=== PATIENT | female | born 1970 | race Caucasian/White ===

== ENCOUNTER 2019-07-25 10:08 | Day surgery (SDC) | payer BC ==
[~2019-07-25 10:08] MED LIST: ACETAMINOPHEN 325 MG TABLET PO PRN; CEFAZOLIN SODIUM 2 GM in DEXTROSE 5%-WATER 100 ML IV PRN; OXYCODONE HCL SR 10 MG TABLET PO PRN
[2019-07-25] MEDS ORDERED: MIDAZOLAM 2 MG/2 ML INJ ONE (13:43)
[2019-07-25] MEDS ORDERED: FENTANYL CITRATE INJ/PF 100 MCG/2 ML AMPUL ONE (13:43)
[2019-07-25] MEDS ORDERED: ONDANSETRON HCL INJ/PF 4 MG/2 ML SDV ONE ×2 (13:44→15:44)
[2019-07-25] MEDS ORDERED: MORPHINE SULFATE 10 MG/ML INJ ONE (13:44)
[2019-07-25] MEDS ORDERED: PROPOFOL INJ 200 MG/20 ML VIAL IV ONE (13:44)
[2019-07-25] MEDS ORDERED: FENTANYL CITRATE INJ/PF 100 MCG/2 ML AMPUL IV PRN ×3 (14:10)
[2019-07-25] MEDS ORDERED: PROMETHAZINE HCL INJ 25 MG/1 ML VIAL IV PRN (14:10)
[2019-07-25] MEDS ORDERED: DIPHENHYDRAMINE HCL 50 MG/ML VIAL IV PRN (14:10)
[2019-07-25] MEDS ORDERED: MORPHINE SULFATE 10 MG/ML INJ IV PRN (14:10)
[2019-07-25] MEDS ORDERED: LIDOCAINE 1% INJ-PF (10 MG/ML) 30 ML SDV ONE (14:12)
[2019-07-25] MEDS ORDERED: BUPIVACAINE HCL 0.5 % INJ/PF 30 ML SDV ONE (14:12)
[2019-07-25] MEDS ORDERED: KETOROLAC TROMETHAMINE 60 MG/2 ML SDV ONE (14:13)
[2019-07-25] MEDS ORDERED: BUPIVACAINE HCL 0.5 % INJ/PF 30 ML SDV INJ ONE (14:27)
[2019-07-25] MEDS ORDERED: LIDOCAINE 1% INJ (10 MG/ML) 10 ML MDV INJ ONE (14:27)
[2019-07-25] MEDS ORDERED: KETOROLAC TROMETHAMINE INJ/PF 30 MG/1 ML SDV INJ ONE (14:28)
[2019-07-25 17:07] VITALS: BP 119/65
--- NOTE | 2019-07-25 21:18 | Operative Report ---
Operative Report DATE OF SURGERY: 07/25/19 PREOPERATIVE DIAGNOSIS: Left elbow lateral epicondylitis POSTOPERATIVE DIAGNOSIS: left elbow lateral epicondylitis OPERATION: lateral epicondyle debridement with tendon repair or reattachment (25240) SURGEON: SENIA CALL JR ANESTHESIA: GA COMPLICATIONS: none PROCEDURE: The patient is a 49-year-old female who had presented to my clinic with left lateral epicondylitis. I counseled her extensively on trying to avoid surgery however she failed nonoperative management including activity modification as well as [id number] pain medications and conservative management. Additionally she has had a previous lateral epicondylitis in the right arm that was treated with open surgery and her results were so good that she is convinced that this needs to be treated prefers to proceed with surgery at this time. After discussing all risks benefits treatment options and prognoses with the patient as well as answering all of her questions she requested open treatment for her epicondylitis and provided written informed operative consent. The patient was brought into the operating suite and placed supine on the operating table. 2 g of Ancef were provided she was placed under general anesthesia. She was prepped and draped in standard sterile fashion followed by an appropriate timeout. After this her left upper extremity was exsanguinated with an Esmarch and tourniquet was inflated. The incision was marked out followed by an incision over the left lateral epicondyle. We took this down to the fascia and isolated the origin of the extensor digitorum brevis. The superior part of this was debrided and after reflecting a portion of the extensor digitorum brevis, pathologic tissue was found. This was removed with sharp dissection with a knife. The lateral epicondyle was isolated and decorticated with a Rongeur. Following this the wound was copiously irrigated and after satisfactory removal of all pathologic tissue a 0 Vicryl was utilized in a transosseous fashion to tie and the remaining extensor digitorum brevis and surrounding fascia. This was brought back to bone through the transosseous tunnel. The subcutaneous tissue was then sutured closed with interrupted 3-0 Monocryl followed by a running 3-0 Monocryl in the subcuticular layer. The patient was then placed in a soft sterile dressing. She was awakened from anesthesia and transferred to the PACU in stable condition.
== END 2019-07-25 17:05 | disposition home or self-care (01) ==
LOC: OROUT 10:08
PROVIDERS: ATTEND Orthopaedic Surgery
DX: M77.12 Lateral epicondylitis, left elbow (principal); I10 Essential (primary) hypertension; I25.10 Atherosclerotic heart disease of native coronary artery without angina pectoris
CPT/HCPCS: 01710; 24359; J2250; J3490 ×2; J0690; J1885 ×2; J2270; J2405; J7060; J2704; 1710; J3010